=== PATIENT | male | born 1985 | race Asian ===

== ENCOUNTER 2016-03-25 18:45 | Outpatient (CLI) | payer OTHER ==
[2016-03-25 19:42] LABS: CALCIUM 9.5 mg/dL (8.4-11.0); CREATININE 1.01 mg/dL (0.55-1.30)
== END 2016-03-25 20:05 | disposition home or self-care (01) ==
LOC: SLB 18:45
PROVIDERS: ATTEND Internal Medicine
DX: E78.5 Hyperlipidemia, unspecified (principal)
CPT/HCPCS: 36415; 80048; 83036

== ENCOUNTER 2020-02-26 16:24 | Emergency (ER) | payer OTHER ==
[~2020-02-26] VITALS: Ht 182.9 cm; Wt 79.4 kg
[2020-02-26 16:25] VITALS: BP_SYST 139
[2020-02-26] MEDS ORDERED: DIPH-TET-PERTUS Vaccine 0.5 ML VIAL (ADACEL) I.M. ONE (18:30)
== END 2020-02-26 18:26 | disposition home or self-care (01) ==
LOC: SED 16:24
DX: S51.811A Laceration without foreign body of right forearm, initial encounter (principal); W45.8XXA Other foreign body or object entering through skin, initial encounter; Y93.89 Activity, other specified; Y92.89 Other specified places as the place of occurrence of the external cause; Y99.8 Other external cause status
CPT/HCPCS: 90715; 99283

== ENCOUNTER 2021-03-06 12:22 | Outpatient (CLI) | payer OTHER | END 2021-03-06 20:59 | disposition home or self-care (01) | LOC: SRD 12:22 | PROVIDERS: ATTEND Internal Medicine | DX: M84.375A Stress fracture, left foot, initial encounter for fracture (principal); M77.32 Calcaneal spur, left foot; X58.XXXA Exposure to other specified factors, initial encounter; Y93.89 Activity, other specified; Y92.89 Other specified places as the place of occurrence of the external cause; Y99.8 Other external cause status ==

== ENCOUNTER 2021-03-24 11:32 | Outpatient (CLI) | payer OTHER ==
[2021-03-24 12:56] LABS: BASOPHILS % (AUTO) 0.3 % (0.0-2.0); EOSINOPHILS # (AUTO) 0.1 K/uL (0.0-0.4); EOSINOPHILS % (AUTO) 1.4 % (0.0-4.0); HEMATOCRIT 46.6 % (36-54); HEMOGLOBIN 15.6 g/dL (14.0-18.0); LYMPHOCYTES # (AUTO) 1.8 K/uL (1.0-5.5); LYMPHOCYTES % (AUTO) 26.2 % (20.5-51.5); MEAN CORPUSCULAR HEMOGLOBIN 26 pg (27-31); MEAN CORPUSCULAR HGB CONC 33 % (32-36); MEAN CORPUSCULAR VOLUME 79 fL (79.0-98.0); MONOCYTES # (AUTO) 0.5 K/uL (0.0-1.0); MONOCYTES % (AUTO) 6.9 % (1.7-9.3); NEUTROPHILS # (AUTO) 4.4 K/uL (1.8-7.7); NEUTROPHILS % (AUTO) 65.2 % (40.0-70.0); PLATELET COUNT (AUTO) 255 K/uL (130-430); RED BLOOD CELL COUNT(AUTO) 5.93 MIL/uL (4.2-6.2); RED CELL DISTRIBUTION WIDTH 12.9 % (9.0-15.0); WHITE BLOOD COUNT (AUTO) 6.8 K/uL (4.8-10.8)
[2021-03-24 13:25] LABS: ALBUMIN 4.2 g/dL (3.4-4.8); CREATININE 0.95 mg/dL (0.55-1.30); POTASSIUM 4.4 mmol/L (3.5-5.1); THYROID STIMULATING HORMONE 2.05 uIu/mL (0.36-3.74); TOTAL BILIRUBIN 0.5 mg/dL (0.0-1.0)
[2021-03-24 14:04] LABS: ERYTHROCYTE SEDIMENTATION RATE 5 MM/HR (0-15)
[2021-03-26 12:06] LABS: VIT D,1, 25-DIHYDROXY 56.8 pg/mL (19.9-79.3)
[2021-03-27 10:37] LABS: HEMOGLOBIN A1C 5.8 % (4.8-5.6)
== END 2021-03-24 20:29 | disposition home or self-care (01) ==
LOC: SLB 11:32
PROVIDERS: ATTEND Internal Medicine
DX: Z00.01 Encounter for general adult medical examination with abnormal findings (principal); E78.5 Hyperlipidemia, unspecified; E55.9 Vitamin D deficiency, unspecified; R73.03 Prediabetes
CPT/HCPCS: 36415; 80053; 82306; 82607; 83036; 84443; 85025; 85651-TC